=== PATIENT | female | born 1995 | race Caucasian/White ===

== ENCOUNTER 2019-05-23 07:24 | Outpatient (CLI) | payer BC ==
--- NOTE | 2019-05-23 08:16 | ULT ---
TRANSABDOMINAL TRANSVAGINAL PELVIC ULTRASOUND DATE:: 05/23/2019 12:00 AM CLINICAL HISTORY: History of right-sided pelvic pain. COMPARISON: None. TECHNIQUE: Grayscale, color Doppler and spectral Doppler images were obtained of the pelvis see a tra nsabdominal transvaginal approach Uterus: Size: 6.8 x 4.1 x 3.6 cm. Mass: None Cervix: There is a small nabothian cyst seen within the cervix measuring 5 mm. Endometrium: Normal Endometrial Thickness: 12 mm Ovaries: Size: right measures 6.5 x 4.6 x 4.0 cm; left measures 3.9 x 2.9 x 2.8 cm Mass: There are 2 large complex cystic lesions involving the right ovary. One is diffusely mildly ech ogenic measuring 5.7 x 2.9 x 5.4 cm with no internal vascular flow. An additional hypoechoic cystic lesion with internal septations is seen within the right ovary measuring 2.3 x 2.2 x 1.2 cm.. Flow: Normal Cul-de-sac: Minimal free fluid IMPRESSION: 2 large complex cystic lesions of the right ovary. Follow-up ultrasound in 6-8 weeks is recommended t o document resolution. Findings are suspicious for hemorrhagic cyst. Complex cystic mass is not entirely excluded. Follow-up is recommended. Small nabothian cyst
== END 2019-05-23 07:25 | disposition home or self-care (01) ==
LOC: SCSULT 07:24
PROVIDERS: ATTEND Internal Medicine
DX: R10.31 Right lower quadrant pain (principal); N83.201 Unspecified ovarian cyst, right side; N88.8 Other specified noninflammatory disorders of cervix uteri
CPT/HCPCS: 76856